=== PATIENT | female | born 1985 ===

== ENCOUNTER 2025-08-05 09:00 | Day surgery (SDC) | payer OTHER ==
[~2025-08-05 09:00] MED LIST: ALL DAY ALLERGY10 M3 PO; TERBINAFINE HC250 MG PO
[2025-08-05] MEDS ORDERED: CEFAZOLIN SODIUM 1,000 MG VIAL ONE (10:17)
[2025-08-05] MEDS ORDERED: POVIDONE-IODINE 118 ML BOTT TOP ONE (10:50)
== END 2025-08-05 16:30 | disposition home or self-care (01) ==
LOC: CIR.AMB 09:00
PROVIDERS: ATTEND Obstetrics & Gynecology
DX: N84.0 Polyp of corpus uteri (principal)